=== PATIENT | female | born 1970 | race Caucasian/White ===

== ENCOUNTER 2016-09-24 00:29 | Emergency (ER) | payer OTHER ==
[2016-09-24 06:17] VITALS: BP 145/86
== END 2016-09-24 06:17 | disposition home or self-care (01) ==
LOC: ED 00:29
DX: S62.615A Displaced fracture of proximal phalanx of left ring finger, initial encounter for closed fracture (principal); S61.215A Laceration without foreign body of left ring finger without damage to nail, initial encounter; W22.8XXA Striking against or struck by other objects, initial encounter; Y93.89 Activity, other specified; Y99.8 Other external cause status; Y92.89 Other specified places as the place of occurrence of the external cause
CPT/HCPCS: A4570; J2001; Q0092

== ENCOUNTER 2016-09-26 20:52 | Emergency (ER) | payer OTHER ==
[2016-09-26 22:40] VITALS: BP 120/85
== END 2016-09-26 22:40 | disposition home or self-care (01) ==
LOC: ED 20:52
DX: S61.215D Laceration without foreign body of left ring finger without damage to nail, subsequent encounter (principal); X58.XXXD Exposure to other specified factors, subsequent encounter; Y99.8 Other external cause status; Y92.89 Other specified places as the place of occurrence of the external cause
CPT/HCPCS: 90715

== ENCOUNTER 2016-12-20 00:25 | Emergency (ER) | payer OTHER ==
[2016-12-20 02:11] VITALS: BP 145/104
== END 2016-12-20 02:11 | disposition home or self-care (01) ==
LOC: ED 00:25
DX: S62.615 Displaced fracture of proximal phalanx of left ring finger (principal); X58.XXXD Exposure to other specified factors, subsequent encounter
CPT/HCPCS: Q0092

== ENCOUNTER 2017-08-08 16:05 | Emergency (ER) | payer OTHER ==
[~2017-08-08] VITALS: Ht 154.9 cm; Wt 70.9 kg
[2017-08-08 16:11] VITALS: Ht 154.9 cm; Wt 70.9 kg
[2017-08-08 17:55] VITALS: BP 114/78
== END 2017-08-08 18:09 | disposition home or self-care (01) ==
LOC: ED 16:05
DX: N75.1 Abscess of Bartholin's gland (principal)